=== PATIENT | female | born 1935 | race Caucasian/White ===

== ENCOUNTER 2022-01-18 17:53 | Inpatient (IN) | payer MEDICARE, BC ==
[~2022-01-18] VITALS: Ht 170.2 cm; Wt 96.1 kg
[2022-01-18 18:40] LABS: BASO % 0.3 % (0.0-2.0); GRAN # 6.6 K/mm3 (1.4-6.5); GRAN % 72.1 % (42.2-75.2); HEMATOCRIT 44.7 % (37.0-47.0); HEMOGLOBIN 15.4 g/dl (12.5-16.0); LYMPH % 11.1 % (20.0-51.0); MEAN CELL VOLUME 89 fl (80.0-100.0); MEAN CORPUSCULAR HEMOGLOBIN 31 pg (27-31); MEAN CORPUSCULAR HGB CONC 35 g/dl (33.0-37.0); MONO # 1.5 K/mm3 (0.1-0.6); MONO % 16.1 % (1.7-9.3); PLATELET COUNT 158 K/mm3 (130-400); RED BLOOD COUNT 5.05 M/mm3 (4.10-5.30); REDCELL DISTRIBUTION WIDTH-CV 13.5 % (11.5-14.5)
[2022-01-18 18:58] LABS: ALBUMIN 3.8 gm/dL (3.4-4.8); BILIRUBIN,TOTAL 0.9 mg/dL (0.2-1.2); CREATININE, serum 1.16 mg/dL (0.57-1.11); POTASSIUM 3.8 mmol/L (3.5-4.5); TOTAL PROTEIN 7.4 gm/dL (6.2-8.1)
[2022-01-18 19:16] LABS: TROPONIN-I 0.153 ng/mL (0.00-0.033)
[2022-01-18 19:43] LABS: INR 1.2 (0.8-3.0)
[2022-01-18 21:06] LABS: PARTIAL THROMBOPLASTIN TIME 30.3 SECONDS (26.0-37.0)
[2022-01-18 22:03] LABS: COLLECTION METHOD CLEAN CATCH
[2022-01-18 22:08] LABS: PH 5.5 (5.0-8.5); URINE APPEARANCE Clear (CLEAR/HAZY); URINE BLOOD 1+ (NEGATIVE); URINE COLOR Yellow (YELLOW); URINE GLUCOSE Negative (NEGATIVE); URINE KETONE Negative (NEGATIVE); URINE NITRATE Negative (NEGATIVE); URINE PROTEIN(semi-quant) 1+ (NEGATIVE); URINE UROBILINOGEN 0.2 E.U/dL (0.2-1.0)
[2022-01-18 22:11] LABS: MUCOUS Present (NOT PRESENT); SQUAMOUS EPITHELIAL 0-2 /hpf (0-10); URINE BACTERIA Rare /hpf (NONE SEEN)
[2022-01-18 22:51] LABS: PHOSPHOROUS 2.8 mg/dL (2.3-4.7)
[2022-01-19] VITALS (16 sets, daily range): BP systolic 101–150; BP diastolic 43–82; PULSE 62–94; TEMP 97.4–99.4
--- NOTE | 2022-01-19 01:01 | NUR ---
01/18/222237 - Patient arrives to unit at 2238 by wheelchair, accompanied by her grand daughter, Elise. Patient sat on bed and immediately laid on left side. Patient is alert and oriented but forgetful with birthday and then able to correctly state her correct date. Patient is oreinted to room, bathroom, television and services. Patient lays in bed with eyes closed, call light in hand. Patient opens eyes to verbal requests. Patient neuros are within normal limits and patient denies pain, needs or concerns. Patient tele shows rate in 60's followed by brief runs of A-Fib. Cardizem drip is ordered. Patient is currently on heparin drip at 16.5 mL/hr. Vitals signs are within normal limits. 0114 - Patient is laying in bed with eyes closed. Patient shows no signs or symptoms of any issues at this time.
[2022-01-19 04:01] LABS: CALCIUM 8.4 mg/dL (8.4-10.2); CREATININE, serum 1.17 mg/dL (0.57-1.11); POTASSIUM 3.8 mmol/L (3.5-4.5)
--- NOTE | 2022-01-19 04:28 | NUR ---
LAB CALLED TO REPORT CRITICAL HEPXA. PROTOCOL INITIATED AND IV STOPPED PER PROTOCOL FOR 2 HRS.
--- NOTE | 2022-01-19 05:03 | NUR ---
PATIENT IS RESTLESS IN BED AND ATTEMPTED TO GET UP BY HERSELF. PATIENT EDUCATION GIVEN ON FALLS AND IMPORTANCE OF UTILIZING CALL LIGHT WITH NEEDS OR CONCERNS. PATIENT STATES UNDERSTANDING. FULL LINEN CHANGE COMPLETED AT THIS TIME. PATIENT PULLED IV OUT OF RIGHT FORE ARM AND A NEW IV PLACED IN LEFT FOREARM. PATIENT DENIES FURTHER NEEDS, PAIN OR CONCERNS AT THIS TIME. CALL LIGHT ORIENTATION GIVEN AT THIS TIME AND PATIENT STATES UNDERSTANDING WHILE HOLDING CALL LIGHT IN RIGHT HAND.
--- NOTE | 2022-01-19 10:00 | NUR ---
PT VSS, ORIENT AND ALERT X4,DUE MEDS GIVEN PER EMR,NO ADVERSE REACTION NOTED. PT DENIES COMPLAINTS OF PAIN.
--- NOTE | 2022-01-19 11:17 | NUR ---
Hide Handler met with patient to discuss discharge planning. Patient has family at bedside including her daughter, Cece Gordon (ph#[phone]) and son, Jose A. Patient lives alone in near [facility] and has Dr. Calderon listed as primary care physician, however has not seen him in years. Patient does not take any regular medications and if she needs any at time of discharge, preferred pharmacy would be [facility] as that is where her family can pick them up at. Patient does not use any DME and is normally independent with ADLS, up until last night. Patient plans to return home at time of discharge but is open to recommendations from PT/OT. SW requested PT/OT orders. Patient does not have Advance Directives and stated she will think about it when SW offered assistance with completing DPOA-HC. Patient has three children: Cece Gordon, Jose A, and Lucian. Discharge Plan: Home, pending PT/OT recommendations
--- NOTE | 2022-01-19 19:25 | NUR ---
PT VSS, ORIENT X4, DUE MEDS GIVEN PER EMR, NO ADVERSE REACTION NOTED, C/O GENERAL BODY ACHES PRN PAIN MEDS GIVEN PRESCRIBED.SOME
--- NOTE | 2022-01-19 20:30 | NUR ---
Pt lying down in bed. Shift assessment completed. A&O x4. Left forearm peripheral line in place. CDI, no redness or edema. Telemetry on. Foam dressing in place on saccral area. Pt denies any pain or disconfort at the moment. Fall precautions remain in place. Call light within reach.
[2022-01-20] VITALS (7 sets, daily range): BP systolic 121–156; BP diastolic 51–77; PULSE 62–69; TEMP 97.5–98.2
--- NOTE | 2022-01-20 03:20 | NUR ---
Pt up to the bathroom with assistance. Some bladder incontinence, Bed pad sheet changed. Pt repositioned. Pt denies any pain or disconfort. Left forearm INT has some bleeding. This DRILL PRESS OPERATOR NUMERICAL CONTROL reported to Charge nurse. Call light within reach.
--- NOTE | 2022-01-20 06:08 | NUR ---
Agree with COMMUNITY CULTURAL DEVELOPMENT OFFICER assessment. Has denied having pain and discomfort. INT to left forearm redressed, working well. Voices no questions, needs, or concerns at this time. In bed with call light within reach. High fall risk precautions in place. Bed alarm on.
--- NOTE | 2022-01-20 06:09 | NUR ---
IV fluids D/C'd during the night per orders.
[2022-01-20 07:19] LABS: CALCIUM 8.7 mg/dL (8.4-10.2); CREATININE, serum 0.99 mg/dL (0.57-1.11); POTASSIUM 4.1 mmol/L (3.5-4.5)
--- NOTE | 2022-01-20 07:33 | NUR ---
PT SLEEPING DURING THE BEDSIDE REPORT.
--- NOTE | 2022-01-20 09:29 | NUR ---
PT HAS SOME REDDENED AREAS UNDER THE LEFT BREAST, SITE CLEANED AND PADDED WITH A DRY GAUZE, SKIN IS INTACT.
--- NOTE | 2022-01-20 10:56 | NUR ---
PT VSS, ORIENT AND ALERT X4, COMPLAINTS OF LOSS OF HEARING TO THE LEFT EAR AND NON PRODUCTIVE COUGH, DR OBANDO NOTIFIED.DUE MEDICATIONS GIVEN PRESCRIBED, NO ADVERSE REACTION NOTED.
--- NOTE | 2022-01-20 18:24 | NUR ---
PT HAD A CALM DAY, VSS, ORIENT AND ALERT X4, DENIES COMPLAINTS OF PAIN, DUE MEDICATION GIVEN PER EMR, NO ADVERSE REACTION NOTED. PT REPORTS HEARING LOSS ON THE LEFT EAR , NOTIFCAITY
--- NOTE | 2022-01-20 19:00 | NUR ---
Pt sitting up in recliner watching TV. Family at bedside. Pt denies any needs or concerns at the time. Call light within reach.
--- NOTE | 2022-01-20 20:30 | NUR ---
Shift assessment completed. Pt reports some soreness on her saccral area. Foam dressing in place. CDI. Gauze dressing under left breast in place. Pt refuses pain med. A&O x4. Tele on. Some bleeding noticed in Left forearm INT. Charge Nurse aware. Pt denies any other needs or concerns at the time. Call light within reach.
--- NOTE | 2022-01-20 23:58 | NUR ---
Strong urine smell in pt's room. Offered pt assistance to use the bathroom and get a new brief. Pt refused pericare at this time. Pt aware of notifying staff if need to use restroom. Will try again in next round. Call light within reach.
--- NOTE | 2022-01-21 02:00 | NUR ---
Pt having trouble sleeping, requested to switch to recliner. Chair alarm on. Fall precautions remain in place. Call light within reach.
[2022-01-21 03:42] VITALS: BP 153/60; PULSE 61; TEMP 98.5
[2022-01-21 07:00] LABS: CALCIUM 8.7 mg/dL (8.4-10.2); CREATININE, serum 1.03 mg/dL (0.57-1.11)
--- NOTE | 2022-01-21 07:32 | NUR ---
PT AWAKE SITTING ON A RECLINER CHAIR, STATES SHE WAS UNABLE TO SLEEP IN THE BED BECAUSE ITS VERY UNCOMFORTABLE.
[2022-01-21 08:26] VITALS: BP 149/71; PULSE 63; TEMP 98
--- NOTE | 2022-01-21 10:10 | NUR ---
Referrals faxed out to [facility], Nick MCCURDY and Oneyda MCCURDY @ 10:11 am SW to reach out to them.
--- NOTE | 2022-01-21 11:42 | NUR ---
PT IS ALERT AND ORIENT X4, VS STABLE. COMPLAINTS OF DRY COUGH AND MODERATE BRUISING NOTED ON THE LEFT EYE SIDE,PT STATES ITS TENDER TO TOUCH, PT ALSO DRY COUGH AND WILLY BEAVERS NOTIFIED. DUE MEDICATIONS GIVEN PRESCRIBED, ALL MED TOLARATED WELL, NO ADVERSE EFFECTS NOTED AT THIS TIME.
[2022-01-21 12:00] VITALS: BP 147/63; PULSE 63; TEMP 97.8
[2022-01-21 16:36] VITALS: BP 132/73; PULSE 64; TEMP 98.1
--- NOTE | 2022-01-21 17:52 | NUR ---
PT HAD A GREAT DAY TODAY, WAS ABLE TO WALK OUT OF HER ROOM SEVERAL TIMES TODAY USING THE WALKER WITH A SBA. MEDS GIVEN PRESCRIBED ABLE TO TOLARATE WELL.NO ADVERSE REACTION NOTED.DENIES OTHER COMPLAINTS INCLUDING PAIN
[2022-01-21 19:19] VITALS: BP 136/85; PULSE 60; TEMP 97.9
[2022-01-22 00:06] VITALS: BP 152/79; PULSE 66; TEMP 97.7
[2022-01-22 04:09] VITALS: BP 144/71; PULSE 60; TEMP 97.9
[2022-01-22 07:52] VITALS: BP 123/71; PULSE 59; TEMP 97.7
--- NOTE | 2022-01-22 08:19 | NUR ---
Pt assessment complete. Pt is sitting up in the recliner upon entry, she is A/O x4. Her breathing is even and unlabored on RA, does have an occasional cough. Denies any pain. States she did not sleep well last night. No needs at this time. Call light within reach.
[2022-01-22] MEDS ORDERED: ELIQUIS 5MG PO ×2 (11:35)
[2022-01-22] MEDS ORDERED: ASPIRIN E.C. 8181 MG PO ×2 (11:39)
[2022-01-22] MEDS ORDERED: CORDARONE200 MG/TAB PO ×2 (11:39)
[2022-01-22] MEDS ORDERED: TYLENOL 325MG325 MG PO ×2 (11:40)
[2022-01-22] MEDS ORDERED: TESSALON P100 MG/CAP PO ×2 (11:40)
[2022-01-22 11:45] VITALS: BP 149/77; PULSE 64; TEMP 98.7
--- NOTE | 2022-01-22 14:09 | NUR ---
Cloth Classer met with patient and patient's family to review discharge plan. They would like SNF referrals sent as well as an IPR screen. Preferences are 1)[facility] 2)[facility] and 3)[facility]. SW contacted each facility and gave referral. [facility] declined as they do not have beds available. [facility] cannot accept as patient is too functional. Ebonie at [facility] can accept and transort time was set for 1330. SW met with patient and her family. All are in agreement with discharge to [facility]. SW was notified by RN that patient's covid test came back positive. SW contacted [facility] and they cannot admit patient with her being positive. SHITAL contacted patient's daughter and discussed a referral to [facility] and she was initially agreeable. Addie at [facility] advised they can accept. SHITAL followed up with patient's daughter, Cece Gordon and they prefer to take patient home with family support and Home Health services. Patient will also need a front wheeled walker. SHITAL reviewed Medicare.gov list of agencies that serve [place] with Latricia and she selected [facility]. Cece Gordon also selected [facility] to order the walker from. SHITAL contacted Jesus at [facility] and faxed referral. Jesus advised they can accept, so SHITAL faxed orders. SHITAL faxed referral and order for FWW to [facility]. SHITAL coordinated with Cece Gordon, daughter who advised they will continuous pickling line pickler helper FWW on their way home. SHITAL confirmed with [facility] that FWW is ready for continuous pickling line pickler helper. Discharge Plan: Home with Home Health and family support
--- NOTE | 2022-01-22 14:35 | NUR ---
Discharge instructions and paperwork reviewed with patient. Discussed Covid 19 with her and her family. All questions answered at this time. IV to LFA dc'd catheter tip intact. Pt wheeled out of facility by staff member at this time.
== END 2022-01-22 14:36 | disposition home health service (06) | DRG 280 ==
LOC: COL.ER 17:53 → MEDICAL 21:35
PROVIDERS: Nurse Practitioner Family; Physician Assistant; ADMIT Hospitalist
DX: I48.0 Paroxysmal atrial fibrillation (principal); I21.A1 Myocardial infarction type 2; U07.1 COVID-19; I50.33 Acute on chronic diastolic (congestive) heart failure; E87.1 Hypo-osmolality and hyponatremia; N17.9 Acute kidney failure, unspecified; S30.0XXA Contusion of lower back and pelvis, initial encounter; W18.39XA Other fall on same level, initial encounter; E87.6 Hypokalemia; E86.0 Dehydration; I95.9 Hypotension, unspecified; Y93.89 Activity, other specified; Y92.89 Other specified places as the place of occurrence of the external cause; Z79.01 Long term (current) use of anticoagulants; Z23 Encounter for immunization
CPT/HCPCS: J1644; J3480; J7030